=== PATIENT | female | born 1965 | race Caucasian/White ===

== ENCOUNTER → 2017-05-20 | Outpatient (REF) | payer BC ==
[2017-05-20 13:43] LABS: C REACTIVE PROTEIN QUANTITATIV < 0.30 MG/DL (0.00-0.30)
[2017-05-20 13:52] LABS: VITAMIN B12 LEVEL 570 PG/ML
[2017-05-20 13:53] LABS: FOLATE 7.5 NG/ML
[2017-05-20 13:56] LABS: REASON FOR REVIEW OTHER; SLIDE REVIEW Report; SOURCE PERIPHERAL SMEAR
[2017-05-20 14:04] LABS: ERYTHROCYTE SEDIMENTATION RATE 10 mm/hr (0-30)
[2017-05-20 14:31] LABS: HEPATITIS C VIRUS ABY INDEX 0.1 INDEX (<0.8)
[2017-05-20 14:31] LABS: HIV 1&2 SCREEN CENTAUR NEGATIVE (NEGATIVE)
== END ==
LOC: M LAB REF 13:09
DX: D70.9 Neutropenia, unspecified (principal); D69.3 Immune thrombocytopenic purpura
CPT/HCPCS: 82525

== ENCOUNTER → 2017-12-09 | Outpatient (REF) | payer BC | LOC: M LAB REF 13:01 | DX: C86.2 Enteropathy-type (intestinal) T-cell lymphoma (principal) | CPT/HCPCS: 88300 ==